=== PATIENT | male | born 1955 | race Caucasian/White ===

== ENCOUNTER 2020-06-15 09:52 | Outpatient (REF) | payer OTHER, SELFPAY ==
[2020-06-15 12:19] LABS: MANUAL DIFF FLAG NO
[2020-06-15 12:43] LABS: Basophils Percent Auto 0.3 % (0-2); Eosinophils Absolute Auto 0.1 X10*3/uL (0.0-0.4); Eosinophils Percent Auto 0.7 % (0-4); Hematocrit 43.8 % (42-52); Hemoglobin 14.3 g/dl (14.0-18.0); Imm Gran Abs Auto 0.25 X10*3/uL (0.00-0.03); Imm Gran Pct Auto 1.7 % (0.0-0.4); Lymphocytes Absolute Auto 0.9 X10*3/uL (1.2-4.9); Lymphocytes Percent Auto 6.3 % (20-40); Mean Corpuscular HGB Conc 32.6 g/dl (31.0-36.0); Mean Corpuscular Hemoglobin 29.7 pg (27.0-33.0); Mean Corpuscular Volume 91.1 fL (80-98); Mean Platelet Volume 9.7 fL (9.4-12.4); Monocytes Absolute Auto 0.6 X10*3/uL (0.1-1.2); Neutrophils Absolute Auto 12.7 X10*3/uL (2.0-8.3); Platelet Count 219 X10*3/uL (160-400); Red Blood Count 4.81 X10*6/uL (4.60-5.80); Red Cell Distribution Width 13.3 % (11.0-16.0); White Blood Count 14.6 X10*3/uL (4.8-10.8)
[2020-06-15 12:44] LABS: Alanine Aminotransferase 49 U/L (0-40); Albumin Level 4.4 g/dL (3.5-5.0); Alkaline Phosphatase 71 U/L (39-117); Anion Gap 13 (12-20); Aspartate Amino Transferase 22 U/L (5-37); Bilirubin Direct 0.2 mg/dL (0.0-0.5); Bilirubin Total 0.6 mg/dL (0.0-1.0); Blood Urea Nitrogen 15 mg/dL (9-16); Calcium 9.2 mg/dL (8.4-10.2); Carbon Dioxide 30 mmol/L (22-29); Chloride 101 mmol/L (96-108); Estimated Glomerular Filt Rate > 60; Glucose Random 113 mg/dL (60-115); Potassium 4.5 mmol/L (3.3-5.1); Sodium 139 mmol/L (135-145); Total Protein 7.2 g/dL (6.5-8.0)
[2020-06-15 12:45] LABS: B Type Natriuretic Peptide < 10 pg/mL (<100); Troponin-I High Sensitivity 4.4 ng/L (<3.5-35.0)
[2020-06-15 13:27] LABS: Erythrocyte Sedimentation Rate 3 MM/HR (0-15)
[2020-06-17 18:27] LABS: TS Negative Control Passed; TS Panel A 0; TS Panel B 0; TS Positive Control Passed; TSpotTB Negative (SeeBelow)
[2020-06-22 01:56] LABS: Angiotensin Converting Enzyme 17 U/L (9-67)
== END 2020-06-15 09:53 | disposition home or self-care (01) ==
LOC: HO.LAB 09:52
PROVIDERS: Visit Provider Hospitalist
DX: D86.9 Sarcoidosis, unspecified (principal); R55 Syncope and collapse; D86.85 Sarcoid myocarditis; R91.8 Other nonspecific abnormal finding of lung field; R59.1 Generalized enlarged lymph nodes; I49.9 Cardiac arrhythmia, unspecified
CPT/HCPCS: 36415; 80048; 80076; 82164; 83880; 84484; 85025; 85652; 86481

== ENCOUNTER → 2020-07-10 12:56 | Outpatient (BNVA) | payer OTHER, SELFPAY | PROVIDERS: Visit Provider Hospitalist | DX: D86.9 Sarcoidosis, unspecified (principal) ==

== ENCOUNTER → 2020-08-16 09:49 | Outpatient (BNVA) | payer OTHER, SELFPAY | PROVIDERS: Visit Provider Hospitalist | DX: D86.9 Sarcoidosis, unspecified (principal) ==

== ENCOUNTER → 2020-11-01 09:38 | Outpatient (BNVA) | payer OTHER, SELFPAY | PROVIDERS: Visit Provider Hospitalist | DX: D86.9 Sarcoidosis, unspecified (principal) ==

== ENCOUNTER → 2021-04-23 09:21 | Outpatient (BNVA) | payer OTHER, SELFPAY | PROVIDERS: Visit Provider Hospitalist | DX: D86.9 Sarcoidosis, unspecified (principal) ==

== ENCOUNTER → 2021-12-12 09:34 | Outpatient (BNVA) | payer MEDICARE, SELFPAY | PROVIDERS: Visit Provider Hospitalist | DX: D86.9 Sarcoidosis, unspecified (principal); R91.8 Other nonspecific abnormal finding of lung field; R59.1 Generalized enlarged lymph nodes; K21.00 Gastro-esophageal reflux disease with esophagitis, without bleeding; I49.9 Cardiac arrhythmia, unspecified | CPT/HCPCS: Q3014 ==

== ENCOUNTER 2022-12-04 09:17 | Outpatient (AMB) | payer MEDICARE, SELFPAY ==
[2022-12-04 09:35] VITALS: PULSE 65; O2SAT 96; BMI 28.0
--- NOTE | 2022-12-04 09:35 | A.OFFVIS_ITS ---
Intake Vital Signs 12/04/22 09:35 Height 5 ft 10 in Weight 195 lb BMI 28.0 Pulse 65 Pulse Source Pulse Oximeter Pulse Oximetry (%) 96 Oxygen Delivery Method Room Air Intake Visit Reasons: CT Chest Follow Up/Sarcoidosis Wildlife Conservation Officer Required: No Allergies Morphine Allergy (Severe, Uncoded 12/04/22 09:39) Vomiting HPI HPI Comments History of Present Illness Details The patient is a 67-year-old gentleman with a known history of pulmonary nodules the lymphadenopathy as well as a masslike density. Status post bronchoscopy with both biopsy in transbronchial needle aspirations consistent with a diagnosis of sarcoidosis. The patient is treated effectively for about 6 months. He has now been off prednisone since August and has been doing okay. Recently he did get a flu shot and a pneumonia shot resulting in a reaction requiring a short course of prednisone. From a respiratory status is back to baseline. Denies any significant shortness of breath or cough. He is going to start exercising more with his . He did have a recent x-ray that we personally reviewed in the office demonstrating interval resolution of the left sided masslike opacity. This is reassuring. The patient is clinically doing well. We will going to keep him off the corticosteroid therapy at this time. He does have his eyes checked and we have checked his blood work in the past demonstrating no kidney involvement. Will plan to reassess things in 6 months unless he develops any recurrent symptoms or any other concerning symptoms that will have to be addressed an earlier time. 08/16/2020 the patient is here for pulmonary follow-up visit. Overall the patient is doing very well. He did decrease the prednisone down to 15 mg daily. He has gained weight. He has also noticed lot episodes where he needs to go void. He is waking sometimes 3-4 times a night to go void. He does have an enlarged prostate. He is concerned because of history of diabetes in family. In the meantime his respiratory status has been stable and denies any chest pains. Denies any activity from the pacemaker defibrillator. He did undergo a cardiac PET scan. Ultimately demonstrating metabolic activity in the hilum suggesting active pulmonary sarcoid within the lymph nodes. Also demonstrated some activity the level of the gastroesophageal junction. He does have symptoms of reflux disease. Explained to him that this is related his sarcoid. I will make a technical illustrations map in[place] is closer to his home. In the meantime the patient no FDG activity of the cardiac PET scan. This is reassuring S specially as prognostic marker. 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 Therefore, still should continue on the prednisone for total of 6 months. However, based on his reassuring PET scan we can decrease the prednisone to the lowest most effective dose. After 6 months of therapy the patient can come therapy in then she did a repeat study in this case consider a cardiac MR. in the meantime is reassuring that the left-sided pulmonary density did light up on PET scan suggesting no significant metabolic activity. 11/01/2020 the patient is here for a pulmonary follow-up visit. Overall he is doing very well. Denies any respiratory complaints. His energy level has been very good. He is currently only taking 5 mg of prednisone at this time. He continues on the Eliquis. He did undergo endoscopy based on the abnormal PET scan demonstrating some FDG activity at the GE junction. It demonstrated mild to moderate 7 giant is. The patient did have biopsies in still waiting for the results. It appears that the esophagitis is likely from reflux. Therefore we did discuss the reflux diet. He does not have any reflux symptoms but I explained to him that he does not have to have symptoms. he will try to sleep elevated if possible and also will continue with the current lifestyle changes that he is already started in addition to cutting down on some of the acidic foods such as tomatoes. At this point the patient has been doing very well and he has completed the course of the prednisone and he can stop at this time. the patient also follow-up with his route vending machine servicer. I am recommending that he has a repeat imaging study in the form of a cardiac MRI in 2 months to further evaluate any recurrent cardiac sarcoidosis. if the patient does have evidence of any cardiac sarcoidosis, then, he will benefit from additional therapies to avoid end-organ damage. The patient did have a defibrillator place that is MRI approved. Still though will need to clear this with his route vending machine servicer. 04/23/2021 the patient is here for a pulmonary follow-up visit. Overall the patient has been doing well. Denies any respiratory complaints. Still has a clearing of the throat and a cough intermittently. Has not use any inhaler therapy and does not feel like he needs any at this time. Energy level is good. He did have his defibrillator evaluated and it triggered 3 times likely due to bradycardia. The patient is taking metoprolol at this time. He is no longer taking Eliquis. He did follow-up with his primary care doctor sometime the beginning of the year and had an EKG and per the patient's report was okay. He also had blood work that I do not have available. The last time with that we imaged she is nodular densities and lung mass was approximately the summer of 2020. Therefore, will reassess the Lung mass early fall to assess for any progression of disease specially since he is off the prednisone at this time. 12/12/2021 the patient has a telephone visit today. He is not recovering from COVID-19. He did receive paxlovid and tolerated it well. He also was fully vaccinated. He has been doing well from a respiratory status. He has been exercising regularly. Denies any respiratory limitations. He does have a cough intermittently. Since we last spoke back in the spring the patient had 1 bout when he started developing worsening shortness of breath and cough. He did take a small short course of prednisone for about a week with resolution of the symptoms. Since then he has not required any more prednisone. He did have a CT scan of the chest on November [address] scan was actually compared to a previous CT scan from 2018 and also an 1 from 2005. overall there is stability of the granulomatous disease. Some areas have demonstrated some improvement when compared to 2018. at this point does not appear to have any active sarcoidosis. He was initially treated with steroids when was initially diagnose and subsequently after that he was treated with another 6 months of prednisone after the suspicion cardiac sarcoid. Will plan to follow-up with a CT scan in a year. In the meantime I will send him blood work for him to do in order to assess other organ function and to make sure that there is no evidence of any active extrapulmonary sarcoidosis. 12/04/2022 the patient is here for a pulmonary follow-up visit. Overall the patient has been doing very well. He is starting to exercise more and been swimming regularly. He has been having some issues with joint stiffness but otherwise not limiting his activity. The patient did have to use prednisone back in the springtime when he developed worsening respiratory symptoms briefly. But after 4 or 5 days of prednisone was able to stop it and symptoms improved. He did have a CT scan of the chest recently which was done at . Then compared to the CT scan he has before. Patient does not have any significant changes in the masslike density in the granulomatous disease. Sarcoidosis appears to be quiescent. To note the patient states that he was told by his route vending machine servicer that his defibrillator went off. He was hunting at the time. He does not recollect causing discomfort. Otherwise patient is without other complaints. I will make sure that he has a short-acting beta agonist available specially when he goes hunting. I will also request a CD copy of the CT scan in order to review it with the patient once I have it available. [facility] Medical History (Updated 08/16/20 @ 22:27 by Devan Cronin MD) Frequency of urination GERD (gastroesophageal reflux disease) Dyspnea Lymphadenopathy Lung mass Cardiac sarcoidosis Syncope Sarcoidosis Social History (Updated 08/16/20 @ 10:00 by Asiya Vigil Sherman) Patient Tobacco Use Status: Never used Tobacco Review of Systems Const Denies night sweats ENT Denies change in voice, Denies lip swelling, Denies mouth pain, Reports nasal congestion, Reports nasal discharge and Denies tongue swelling Card Denies chest pain Resp Reports cough GI Denies abdominal pain Musc Reports myalgias and Reports arthralgias Neuro Denies Neuro-related abnormal movements Psych Denies no additional complaints Chinmay/Lymph Denies easy bleeding and Denies lymphadenopathy Aller/Immun Denies lip swelling and Denies tongue swelling Physical Exam Vital Signs: Last Vital Signs Pulse 65 12/04/22 09:35 Pulse Ox 96 12/04/22 09:35 Oxygen Delivery Method Room Air 12/04/22 09:35 BMI result Body Mass Index 28.0 Const General: alert Neck Neck: Yes normal visual inspection, Yes full ROM and Yes no lymphadenopathy Chest Chest palpation & inspection: normal inspection of the chest and Pacemaker present (ICD placement clean dry and intact) Resp Auscultation: diminished lung sounds Cardio Rate: regular rate Rhythm: regular rhythm Heart sounds: S1 normal heart sound present and S2 normal heart sound present GI Palpation (GI): Soft to palpation and nontender Auscultation: normal bowel sounds Skin General skin exam: rashes and/or lesions noted Assessment & Plan Assessment & Plan Medications: New prednisone PO daily; Take 6 tabs daily x 3 days, then 5 tabs x 3 days, then 4 tabs x 3 days, then 3 tabs x 3 days, then 2 tabs daily x 3 days, then 1 tab x 3 days to complete. 63 tabs 0RF 18 days Refilled albuterol sulfate 90 mcg/actuation 2 inhalations inhalation Q6H PRN 18 grams 12RF shortness of breath or wheezing 30 days J44.9 - Chronic obstructive pulmonary disease, unspecified Coding Level of Care Code Est Pt Level 4 (55926) Time Spent (min) 20
== END 2022-12-04 10:27 | disposition home or self-care (01) ==
PROVIDERS: Visit Provider Hospitalist
DX: D86.0 Sarcoidosis of lung (principal)
CPT/HCPCS: 99214

== ENCOUNTER → 2022-12-04 09:17 | Outpatient (BNVA) | payer MEDICARE, SELFPAY | PROVIDERS: Visit Provider Hospitalist | DX: D86.9 Sarcoidosis, unspecified (principal) | CPT/HCPCS: 99212 ==